=== PATIENT | female | born 1965 | race Caucasian/White ===

== ENCOUNTER 2018-01-04 10:15 | Outpatient (CLI) | payer BC ==
[~2018-01-04] VITALS: Ht 162.6 cm; Wt 61.7 kg
[2018-01-04 10:24] VITALS: BP 126/79
== END 2018-01-04 10:35 | disposition home or self-care (01) ==
LOC: PREOP 10:15
PROVIDERS: ATTEND Podiatrist Foot & Ankle Surgery
DX: Z01.818 Encounter for other preprocedural examination (principal)
CPT/HCPCS: 87081

== ENCOUNTER 2018-01-22 06:05 | Day surgery (SDC) | payer BC ==
[~2018-01-22] VITALS: Ht 162.6 cm; Wt 61.7 kg
--- OUTSIDE RECORDS SUMMARY | 2018-01-22 06:15 | XMS REPORT | Continuity of Care Document ---
Author Author [facility] Organization [facility] Address Unknown Phone Unavailable Allergies Active Description Code Type Severity Reaction Onset Reported/Identified Relationship to Patient Clinical Status Yes Sulfa (Sulfonamide Antibiotics) [id number] Drug Allergy Unknown N/A 2013 Medications There is no data. Problems Date Dx Coded Attending Type Code Diagnosis Diagnosed By 04/12/2014 GARRET MAC APRN Ot 490 BRONCHITIS NOS 04/12/2014 GARRET MAC APRN Ot 698.9 PRURITIC DISORDER NOS 04/12/2014 GARRET MAC APRN Ot 786.2 COUGH 04/12/2014 GARRET MAC APRN Ot 787.02 NAUSEA ALONE 04/12/2014 GARRET MAC APRN Ot E930.3 ADV EFF ERYTHROMYCIN 01/04/2018 OTTONIEL DPM, POONAM Q Ot Z01.818 ENCOUNTER FOR OTHER PREPROCEDURAL EXAMIN 01/05/2018 OTTONIEL DPM, POONAM Q Ot Z01.818 ENCOUNTER FOR OTHER PREPROCEDURAL EXAMIN Procedures There is no data. Results Test Result Range Methicillin resistant Staphylococcus aureus (MRSA) screening culture - 10:31 MRSA SCREEN RESULT MRSA NOT ISOLATED NRG Encounters ACCT No. Visit Date/Time Discharge Status Pt. Type Provider Facility Loc./Unit Complaint [id number] 01/08/2018 08:00:00 01/08/2018 23:59:59 CLS Preadmit OTTONIEL DPM, POONAM Q [facility] SDC HALLUX VALGUS [id number] 01/04/2018 10:15:00 01/04/2018 10:35:00 DIS Outpatient OTTONIEL DPM, POONAM Q [facility] PREOP HALLUX VALGUS [id number] 04/12/2014 11:21:00 04/12/2014 13:19:00 DIS Emergency GARRET MAC APRN [facility] ER COUGH/CONGESTION [email or web address] 04/12/2014 11:21:54 ACT Document Registration
[2018-01-22 06:20] VITALS: BP 133/89
[2018-01-22] MEDS ORDERED: ONDANSETRON 4 MG/2 ML (SDV) Z0FRAN IV ONE (06:30)
[2018-01-22] MEDS ORDERED: SCOPOLAMINE 1.5 MG (TRANSDERM-SCOP) PATCH TOP ONE (06:30)
[2018-01-22] MEDS ORDERED: ceFAZolin INJECTION 1,000 MG in NS (IVPB) 50 ML IV ONE (06:30)
[2018-01-22] MEDS ORDERED: FAMOTIDINE 20MG/2ML IV (PEPCID) IV ONE (06:30)
[2018-01-22] MEDS ORDERED: ceFAZolin 1,000 MG/10 ML (ANCEF) VIAL ONE (06:34)
[2018-01-22] MEDS ORDERED: NS (IVPB) 50 ML ONE (06:34)
[2018-01-22] MEDS: LACTATED RINGERS 1,000 ML IV PRN ×3 (06:35→09:30)
[2018-01-22] MEDS ORDERED: CATHETER FLUSH 10 ML SYR IV PRN (07:00)
[2018-01-22] MEDS ORDERED: MIDAZOLAM 2 MG/2 ML (VERSED) VIAL ONE ×2 (07:12→07:35)
[2018-01-22] MEDS ORDERED: BUPIVACAINE 0.5% 30 ML (SENSORCAINE) VIAL ONE (07:13)
--- NOTE | 2018-01-22 07:13 | Progress Note-Pre Operative ---
Pre-Operative Progress Note H&P Reviewed The H&P was reviewed, patient examined and no changes noted. Date Seen by Provider: Jan 22, 2018 Time Seen by Provider: 07:12 Date H&P Reviewed: Jan 22, 2018 Time H&P Reviewed: 07:12 Pre-Operative Diagnosis: Hallux Valgus, Capsulitis 2nd MTPJ, right POONAM ALCAZAR DPM Jan 22, 2018 7:13 am
[2018-01-22] MEDS ORDERED: proPOfol 200 MG/20 ML (DIPRIVAN) VIAL IV ONE (07:23)
[2018-01-22] MEDS ORDERED: DEXAMETHASONE 10 MG/ML (DECADRON) 1 ML VIAL ONE ×2 (07:23→10:45)
[2018-01-22] MEDS ORDERED: ONDANSETRON 4 MG/2 ML (SDV) Z0FRAN ONE (07:23)
[2018-01-22] MEDS ORDERED: SEVOFLURANE (ULTANE) 15 ML INHAL SOLN ONE ×4 (07:23→11:09)
[2018-01-22] MEDS ORDERED: fentaNYL INJECTION 100 MCG/2 ML AMP ONE (07:23)
[2018-01-22] MEDS ORDERED: LIDOCAINE PF 2% 2 ML (XYLOCAINE) VIAL ONE (07:23)
[2018-01-22] MEDS ORDERED: PHENYLEPHRINE 100 MCG/ML 10 ML (ANESTHESIA) SYR ONE (10:34)
--- NOTE | 2018-01-22 11:03 | Diagnostic Imaging Report ---
INDICATION: Bunion deformity. FINDINGS: Two fluoroscopic images of the right foot were obtained. There are postsurgical changes of bunionectomy. Hardware appears to be in satisfactory position. IMPRESSION: Intraoperative fluoroscopy during bunionectomy as described. Dictated by: Dictated on workstation # [id number]
[2018-01-22] MEDS ORDERED: HYDROcodone/APAP 5 MG/325 MG (LORTAB) TAB PO PRN (11:15)
[2018-01-22] MEDS ORDERED: LACTATED RINGERS 1,000 ML IV SCH (11:15)
--- NOTE | 2018-01-22 11:15 | Progress Note-Post Operative ---
Post-Operative Progess Note Surgeon (s)/Fusion Operator (s) Surgeon POONAM ALCAZAR DPM Fusion Operator: none Pre-Operative Diagnosis Hallux Valgus, Capsulitis 2nd MTPJ, right Post-Operative Diagnosis same, plus hypertrophic 2nd metatarsal head, right Procedure & Operative Findings Date of Procedure 01/22/18 Procedure Performed/Findings Lapidus bunionectomy, Addison osteotomy, 2nd metatarsal osteotomy, plantar plate repair 2nd MTPJ, all right Anesthesia Type general Estimated Blood Loss Estimated blood loss (mL): Minimal Specimens/Packing Specimens Removed none POONAM ALCAZAR DPM Jan 22, 2018 11:15 am
[2018-01-22] MEDS ORDERED: CEPH500C PO (11:18)
[2018-01-22] MEDS ORDERED: ACHD5005 PO (11:18)
[2018-01-22 12:10] VITALS: BP 104/69
[2018-01-22 12:40] VITALS: BP 103/70
[2018-01-22 13:10] VITALS: BP 95/69
--- NOTE | 2018-01-22 13:36 | OPERATIVE REPORT ---
DATE OF SERVICE: 01/22/2018 SURGEON: Kahlil Tsang DPM. PREOPERATIVE DIAGNOSES: 1. Hallux abductovalgus metatarsal primus right foot. 2. Hypertrophic second metatarsal, right foot. 3. Capsulitis with plantar plate tear, right second metatarsophalangeal joint. POSTOPERATIVE DIAGNOSES: 1. Hallux abductovalgus metatarsal primus right foot. 2. Hypertrophic second metatarsal, right foot. 3. Capsulitis with plantar plate tear, right second metatarsophalangeal joint. PROCEDURES: 1. A lapidus bunionectomy with staple fixation and implant. 2. Addison osteotomy with a 28-gauge monofilament wire fixation. 3. Second metatarsal osteotomy with screw fixation. 4. Plantar plate repair utilizing the Arthrex plantar plate repair system right 2nd MTPJ. WOUND CLASS: Clean. ANESTHESIA: General. HEMOSTASIS: Pneumatic thigh tourniquet at 250 mmHg. INDICATIONS: This 52-year-old female presents complaining of pain to the right forefoot and bunion area. Conservative therapy has met with unsatisfactory results and the patient is agreeable to surgical intervention after risks and complications were discussed at length. No guarantees were extended to the patient and she is willing to proceed. DESCRIPTION OF PROCEDURE: The patient was brought back to the operating table and placed in a secure supine position. A general anesthetic was then induced. Appropriate timeout was performed. A pneumatic thigh tourniquet was placed on the right lower extremity over several layers of padding. The right foot was then prepped and draped in the normal sterile manner. The right foot was then elevated and allowed to exsanguinate after which the tourniquet was inflated to 250 mmHg. Attention was then directed to the medial aspect of the right first metatarsal cuneiform joint where a 4 cm longitudinal linear incision was created with a great care to identify and retract all vital neurovascular structures as the incision was deepened. A capsulotomy was performed exposing the first metatarsal cuneiform joint after which a power sagittal saw was utilized to remove the articular cartilage. Once the articular cartilage was removed, the joint ends were then fenestrated utilizing a 0.062 smooth K-wire. Next, a calcium phosphate wedge from [employer] was introduced into the arthrodesis site. The medial portion of the wedge was 10 mm in width. Intraoperative C-arm confirmed appropriate reduction of the first intermetatarsal angle. Two amy were then utilized to secure the arthrodesis site; the first was medial and was 20 mm in length. Excellent bony apposition and compression was appreciated. The next was a staple of 18 mm of width to the dorsal aspect of the first metatarsal cuneiform joint. The wound was flushed with copious amounts of normal saline. Next, [employer] Cellular bone matrix was then introduced to pack in the remaining area of the first metatarsal cuneiform arthrodesis site. Closure was then performed in layers. Deep closure was performed with 3-0 Vicryl, superficial with 4-0 Vicryl, skin closure with 4-0 Prolene in a horizontal mattress type stitch. Attention was then directed to the dorsal aspect of the first metatarsophalangeal joint where a 4 cm longitudinal linear incision was created. The incisions were deepened in same plane with care to identify and retract all vital neurovascular structures. A longitudinal capsulotomy was performed overlying the first metatarsophalangeal joint. A medial eminence to the distal diaphysis was identified and reduced with the power sagittal saw. It was evident that there is a large amount of medial first metatarsal head resected previously from a bunionectomy performed by another physician. The wound was flushed with copious amounts of normal saline. There was continued to be some lateral deviation to the right hallux. A lateral release was then performed. The conjoint tendon of the adductor hallucis was released as well as a left lateral capsulorrhaphy. It was then decided that an Addison type procedure should be performed. Subperiosteal dissection was carried out to the proximal phalanx diaphysis after which a wedge of bone was resected with the base medial and the lateral cortices held intact. Next, a wire passing drill was utilized to create a hole to the dorsal medial aspect of the osteotomy. Once the osteotomy was closed, a 28-gauge monofilament wire was then passed through the hair dresser hole securing the osteotomy in a closed position. Excellent bony apposition and fixation was appreciated at this time. The wound was flushed with copious amounts of normal saline after which closure was performed in layers. Deep closure was performed with 3-0 Vicryl, superficial with 4-0 Vicryl, skin closure with 4-0 Prolene in a horizontal mattress type stitch. Attention was then directed to the dorsal aspect of the second metatarsophalangeal joint where a 5 cm longitudinal linear incision was created. The incision was deepened in the same plane with great care to identify and retract all vital neurovascular structures superiorly and the necessary blood vessels were cauterized as encountered. The extensor tendon was identified and a lengthening performed in a Z slide fashion. The extensor tendon was reflected proximally and the extensor moon released. Next, a dorsal capsulorrhaphy was performed to the second metatarsophalangeal joint and a release of the medial and lateral collateral ligaments. Next, a Ankur type osteotomy was performed with a power sagittal saw. The capital fragment was translocated proximally and fixated in its new position with a 0.062 K wire. A second K wire was then introduced to the base of the proximal phalanx. A McGlamry elevator was utilized to release any plantar adhesions to the second metatarsal head. Next, inspection of the plantar plate indicated a partial tear to the medial distal portion of the plantar plate. The plantar proximal aspect of the 2nd digit proximal phalanx was roughened with a hand rasp. Next, a Sullivan blade was utilized to release the remaining attachment of the plantar plate to the proximal phalanx. Utilizing the Arthrex plantar plate repair kit, two FiberWires were then passed through the distal remaining plantar plate. Two holes were created in a cross type fashion to the proximal phalanx from medial dorsal to plantar lateral and from dorsal lateral to plantar medial. The FiberWire was then passed through these hair dresser holes at the base of the proximal phalanx allowing the tension to be appropriate for the plantar plate. An excellent alignment of the right second toe was appreciated at this time. The second metatarsal head was placed in the appropriate alignment and a 2-0 snap-off screw of 12 mm length was then placed across the second metatarsal osteotomy with excellent bony apposition and fixation. The head was further contoured smooth with a rongeur and power bur. The wound was flushed with copious amounts of normal saline. Once again, the appropriate physiological tension to the plantar plate was applied and the FiberWire was then hand tied. Closure was then performed in layers. Deep closure was performed with 3-0 Vicryl, superficial with 4-0 Vicryl and skin closed with 4-0 Prolene in a horizontal mattress type stitch. Postoperative injection consisted of 10 mL of 0.5% Marcaine plain in a local infusion to the surgical site. Preoperative injection was the same with 10 mL of 0.5% Marcaine in a David block and as well as a block to the second ray, right foot. Postoperative injection also included 10 mg of dexamethasone to the first metatarsophalangeal joint area. Postoperative dressing consisted of Betadine soaked Adaptic, sterile 4 x 4s, sterile Kerlix all secured with a Coban wrap. The patient tolerated the anesthesia and procedure well and was transported from the operating room to the recovery area with vital signs stable and vascular status intact to all digits of the right foot. She is to be absolutely nonweightbearing on the right foot and follow up in my office in 10 days' period of time. She was given a prescription for Keflex as well as Vicodin. Job ID: [id number] DocumentID: [id number] Dictated Date: 01/22/2018 11:32:04 Shaker Tender Date: 01/22/2018 13:35:41 Dictated By: PAPO BOYLE
--- NOTE | 2018-01-22 14:03 | Anesthesia-General Post-Op ---
General Patient Condition Mental Status/LOC: Same as Preop Cardiovascular: Satisfactory Nausea/Vomiting: Absent Respiratory: Satisfactory Pain: Controlled Complications: Absent Post Op Complications Complications None Follow Up Care/Instructions Patient Instructions None needed. Anesthesia/Patient Condition Patient Condition Patient is doing well, no complaints, stable vital signs, no apparent adverse anesthesia problems. No complications reported per nursing. LYUBOV LANDRY CRNA Jan 22, 2018 14:03
--- NOTE | 2018-01-22 14:30 | Physical Therapy Ortho Eval ---
PT Orthopedic Evaluation Type of Surgery Hallux Valgus, Capsulitis 2nd MTPJ, right Prior Level of Function Current Living Status: Significant Other Locomotion (Upon Admit): Independent Pt brought in an iWalk; AD for ambulation; described as "hands free crutch" Subjective Subjective Pt agreeable to PT. Pt brought in an iWalk AD for ambulation. She reports she did not try to use the device prior to today. She reports the instructions were either in their car or at home. Entry Into Home: Stairs With Railing Steps Into Home: 3 Motor Control Motor Control: Motor Control WNL ROM ROM: WFL Strength Strength: WFL Gross U/LE strength is WNL Transfer Pt was able to transfer supine to sit without assist. Initially she required CGA for sit to/from stand transfers but as treatment wore on, she was SBA with this transfer. She performed multiple sit to stand attempts with crutches. She also stood and maintained standing with min assist as the iWalk AD was applied. Gait Gait Assistive Device: Crutches (iWalk AD) Right Lower Extremity: Right Weight Bearing Status RLE: Non Weight Bearing Left Lower Extremity: Left Weight Bearing Status LLE: Full Weight Bearing Gait training on level surfaces and up/down a curb step x 2 with crutches. Pt was slightly unsteady initially and needed min assist, as treatment went on, she was SB to CGA with gait on crutches. Sig other present and able to assist as needed. Gait (FIM): 4 (at end of treatment, CG-SBA) Distance (FIM): 9=396-21 ft Summary/Comments Pt unsteady initially, became more steady as she progressed. Up/down a curb step x 2 with CGA using crutches with skilled cues on sequencing and safety. Applied iWalk AD for ambulation and pt was able to walk a short distance with CG -min assist with cues for safety. Instructed pt and sig other to continue practicing use of iWalk AD with assist and to find and read the instruction manual for safer application. Treatment Rendered Treatment: Gait Train, Step Train Pt able to use crutches for ambulation more safely than iWalk AD. Also informed pt of knee scooter for mobility longer distances. Recommend use of crutches until she has had time to practice and use the iWalk device in a safer method. Assessment/Goals Goal Time Frame: 1 Visit Recommend supervision with ambulation initially. Pt had recently taken pain meds and was unsteady with upright mobility. Feel that as this wears off and she uses the crutches more, she will be safe with crutch use. Plan Treatment Plan: Discharge Treatment Duration: 1 visit PT/Family Agrees to Plan: Yes Time Time In: 1310 Time Out: 1400 Total Billed Treatment Time: 50 Billed Treatment Time visit EVL 50 JAILENE VIZCARRA PT Jan 22, 2018 14:30
== END 2018-01-22 13:45 | disposition home or self-care (01) ==
LOC: SDC 06:05 → EEVIPCON 10:00 → SDC 13:45
PROVIDERS: ATTEND Podiatrist Foot & Ankle Surgery
DX: M20.11 Hallux valgus (acquired), right foot (principal); M89.371 Hypertrophy of bone, right ankle and foot; M77.51 Other enthesopathy of right foot and ankle; M24.874 Other specific joint derangements of right foot, not elsewhere classified